=== PATIENT | male | born 1960 | race Caucasian/White ===

== ENCOUNTER 2021-07-04 13:34 | Emergency (ER) | payer OTHER ==
[~2021-07-04] VITALS: Ht 188 cm; Wt 190.5 kg
[2021-07-04 15:13] LABS: BASOPHIL 0.4 % (0-2); EOSINOPHIL 0.9 % (0-5); HCT 42.4 % (42.0-52.0); HGB 13.7 g/dl (13.2-18.0); LYMPHOCYTE 8.5 % (15-48); MCH 27.7 pg (25.0-31.0); MCHC 32.3 g/dL (32.0-36.0); MCV 85.7 fL (78.0-100.0); MONOCYTE 7.7 % (0-12); MPV 10.9 fL (6.0-9.5); NEUTROPHIL 82.1 % (41-80); NRBC 0; PLT 211 K/uL (150-400); RBC 4.95 M/uL (4.70-6.00); RDW 13.4 % (11.5-14.0); WBC 13.8 K/uL (4.0-10.5)
[2021-07-04 15:48] LABS: ALBUMIN 3.5 g/dL (3.4-5.0); BILIRUBIN - TOTAL 0.4 mg/dL (0.2-1.0); BUN/CREAT RATIO (CALC) 19.2 RATIO; CREATININE 0.99 mg/dL (0.67-1.17); GLOBULIN (CALCULATION) 4.6 g/dL; POTASSIUM 3.9 mmol/L (3.5-5.1); TOTAL PROTEIN 8.1 g/dL (6.4-8.2)
[2021-07-04] MEDS ORDERED: NAPROXEN500 MG PO ×2 (17:30→17:34)
[2021-07-04] MEDS ORDERED: CEPHALEXIN250 MG PO ×2 (17:30→17:34)
[2021-07-04] MEDS ORDERED: BACITRACIN15 GM TOP ×2 (17:30→17:34)
== END 2021-07-04 18:00 | disposition home or self-care (01) ==
LOC: FER 13:34
PROVIDERS: Emergency Medicine
DX: S81.831A Puncture wound without foreign body, right lower leg, initial encounter (principal); S80.12XA Contusion of left lower leg, initial encounter; Z23 Encounter for immunization; W31.83XA Contact with special construction vehicle in stationary use, initial encounter; Y92.89 Other specified places as the place of occurrence of the external cause; Y99.0 Civilian activity done for income or pay
CPT/HCPCS: 36415; 73552; 73590; 73610; 80053; 82550; 85025; 90471; 90715; J1170; J2405; J2543